=== PATIENT | female | born 1995 | race Caucasian/White ===

== ENCOUNTER 2017-12-23 09:08 | Day surgery (SDC) | payer MEDICAID ==
[2017-12-23 09:38] VITALS: BMI 17.9
[2017-12-23 10:05] VITALS: O2SAT 100
[2017-12-23] MEDS ORDERED: Propofol 10 mg/ml Inj (20 ML) ONE ×2 (12:55→13:04)
[2017-12-23] MEDS ORDERED: Midazolam 2 MG/2 ML VIAL ONE (12:56)
[2017-12-23] MEDS ORDERED: Lidocaine 2% MPF (5 ml) Inj ONE (12:57)
[2017-12-23 14:49] VITALS: TEMP 98.9
[2017-12-23 14:57] VITALS: BP 105/60; PULSE 82; RESP 20
== END 2017-12-23 14:50 | disposition home or self-care (01) ==
LOC: C.ENDO 09:08
PROVIDERS: ATTEND Internal Medicine Gastroenterology
DX: K29.70 Gastritis, unspecified, without bleeding (principal); D50.9 Iron deficiency anemia, unspecified; B96.81 Helicobacter pylori [H. pylori] as the cause of diseases classified elsewhere
CPT/HCPCS: 43239; 84703; 88305; 88313; 88342; J2250; J2704; J7040